=== PATIENT | female | born 1935 | race African-American/Black ===

== ENCOUNTER 2021-07-20 16:52 | Emergency (ER) | payer BC, MEDICARE, OTHER ==
[~2021-07-20] VITALS: Ht 177.8 cm; Wt 100.0 kg
[2021-07-20 19:49] VITALS: BP 158/76
== END 2021-07-20 19:54 | disposition home or self-care (01) ==
LOC: ER 16:52
DX: F41.9 Anxiety disorder, unspecified (principal); I10 Essential (primary) hypertension; E11.9 Type 2 diabetes mellitus without complications; M19.90 Unspecified osteoarthritis, unspecified site; D18.03 Hemangioma of intra-abdominal structures; Z86.711 Personal history of pulmonary embolism; Z79.01 Long term (current) use of anticoagulants
CPT/HCPCS: 93005; 99283